=== PATIENT | male | born 1985 | race African-American/Black ===

== ENCOUNTER 2017-06-07 18:49 | Emergency (ER) | payer BC, OTHER ==
--- NOTE | 2017-06-07 19:55 | EDM.PDOC ---
ED HPI GENERAL MEDICAL PROBLEM - General Chief Complaint: Skin Complaint Stated Complaint: ABCESS Time Seen by Provider: 06/07/17 19:48 - History of Present Illness INITIAL COMMENTS - FREE TEXT/NARRATIVE: HISTORY AND PHYSICAL: History of present illness: The patient is a 31-year-old male who presents with a long-standing history of recurrent pilonidal cyst and says that he has had one that has been growing over the last 3 weeks and this would be his seventh or eighth time. He was told back home that he might need to have this surgically removed but he has relocated here and presents for care. He said it did not start draining until today and he has had persistent pain there. He has no systemic complaints of fever chills cough abdominal pain diarrhea or trouble with bowel movements. He says this is the typical location for him Review of systems: As per history of present illness and below otherwise all systems reviewed and negative. Past medical history: As per history of present illness and as reviewed below otherwise noncontributory. Surgical history: As per history of present illness and as reviewed below otherwise noncontributory. Social history: No reported history of drug or alcohol abuse. Family history: As per history of present illness and as reviewed below otherwise noncontributory. Physical exam: General: Well-developed well-nourished man who is nontoxic and vital signs are reviewed by me HEENT: Atraumatic, normocephalic, pupils reactive, negative for conjunctival pallor or scleral icterus, mucous membranes moist, throat clear, neck supple, nontender, trachea midline. Lungs: Clear to auscultation, breath sounds equal bilaterally, chest nontender. Heart: S1S2, regular rate and rhythm no overt murmurs Abdomen: Soft, nondistended, nontender. Negative for costovertebral tenderness. Pelvis: Stable nontender. Genitourinary: Deferred. Rectal: Perianal tone is intact and there is no fluctuance or tenderness in the perianal area. At the distal sacrum coccyx area there is visible pus emerging from a wound to the left of midline and there is significant induration and tenderness in the surround measuring approximately 12 x 10 cm. This area is very firm and I'm able to express some more pus on palpation. There is discrete tenderness in this area. There is no extension of this towards the anal region.. Extremities: Atraumatic, negative for cords or calf pain. Neurovascular unremarkable. Neuro: Awake, alert, oriented. Cranial nerves II through XII unremarkable. Cerebellum unremarkable. Motor and sensory unremarkable throughout. Exam nonfocal. Diagnostics: [] I discussed this case with Dr. De La Cruz @ 1958; he states that he would like me just to try to express a little bit more pus but does not want me to do a formal I&D at this time but wants the patient to be placed on clindamycin and pain medication and to be seen in his clinic tomorrow for definitive care. The patient is comfortable with this care plan. Therapeutics: Clindamycin Percocet Impression: Recurrent pilonidal cyst, spontaneous drainage Definitive disposition and diagnosis as appropriate pending reevaluation and review of above. mid buttocks area Pain Score (Numeric/FACES): 8 - Related Data Allergies Allergy/AdvReac Type Severity Reaction Status Date / Time No Known Allergies Allergy Verified 06/07/17 19:07 Home Meds: Home Meds . [No Known Home Meds] 06/07/17 [History] Past Medical History HEENT History: Reports: None Cardiovascular History: Reports: None Respiratory History: Reports: None Gastrointestinal History: Reports: None Genitourinary History: Reports: None Musculoskeletal History: Reports: None Neurological History: Reports: None Psychiatric History: Reports: None Endocrine/Metabolic History: Reports: None Hematologic History: Reports: None Immunologic History: Reports: None Oncologic (Cancer) History: Reports: None Dermatologic History: Reports: None - Infectious Disease History Infectious Disease History: Reports: None - Past Surgical History Head Surgeries/Procedures: Reports: None Musculoskeletal Surgical History: Reports: Other (See Below) Other Musculoskeletal Surgeries/Procedures:: muscle reconstruction to left leg Social & Family History - Family History Family Medical History: Noncontributory - Tobacco Use Smoking Status *Q: Current Some Day Smoker Years of Tobacco use: 15 Packs/Tins Daily: 0.5 - Caffeine Use Caffeine Use: Reports: Coffee - Recreational Drug Use Recreational Drug Use: No ED ROS GENERAL - Review of Systems Review Of Systems: ROS reveals no pertinent complaints other than HPI. ED EXAM, SKIN/RASH Exam: See Below (See dictation) Course - Vital Signs Last Recorded V/S: Last Vital Signs Temp 36.8 C 06/07/17 19:07 Pulse 108 H 04/01/18 19:07 Resp 18 06/07/17 19:07 BP 145/104 H 06/07/17 19:07 Pulse Ox 98 06/07/17 19:07 Departure - Departure Time of Disposition: 20:04 Disposition: Home, Self-Care 01 Condition: Good Clinical Impression: Pilonidal cyst with abscess - Discharge Information Referrals: PCP,None [Primary Care Provider] - Forms: ED Department Discharge Additional Instructions: The following information is given to patients seen in the emergency department who are being discharged to home. This information is to outline your options for follow-up care. We provide all patients seen in our emergency department with a follow-up referral. The need for follow-up, as well as the timing and circumstances, are variable depending upon the specifics of your emergency department visit. If you don't have a primary care physician on staff, we will provide you with a referral. We always advise you to contact your personal physician following an emergency department visit to inform them of the circumstance of the visit and for follow-up with them and/or the need for any referrals to a consulting specialist. The emergency department will also refer you to a specialist when appropriate. This referral assures that you have the opportunity for followup care with a specialist. All of these measure are taken in an effort to provide you with optimal care, which includes your followup. Under all circumstances we always encourage you to contact your private physician who remains a resource for coordinating your care. When calling for followup care, please make the office aware that this follow-up is from your recent emergency room visit. If for any reason you are refused follow-up, please contact the [facility] emergency department at and ask to speak to the emergency department charge nurse. [facility] Specialty [facility]-General Surgery Professional Building [address] [place] [id number] Please call and speak with Dr. De La Cruz's Nurse tomorrow morning at 8 AM. Please specifically tell her that Dr. De La Cruz wants to see you in the clinic on Thursday and that you need to be added to his schedule. Please expect drainage from the cyst area and do warm sitz baths as you choose. Take pain medication and antibiotics as directed. Return to ER as needed and as discussed
[2017-06-07] MEDS ORDERED: Acetaminophen/oxyCODONE 325-7.5 MG Tab PO ONE (20:05)
[2017-06-07] MEDS ORDERED: Clindamycin HCl 150 MG Cap PO ONE (20:05)
[2017-06-07] MEDS ORDERED: Acetaminophen/oxyCODONE 325-10 MG Tab PO ONE (20:10)
== END 2017-06-07 20:37 | disposition home or self-care (01) ==
LOC: MW.ED 18:49
DX: L05.01 Pilonidal cyst with abscess (principal); F17.210 Nicotine dependence, cigarettes, uncomplicated
CPT/HCPCS: 99283; A9270